=== PATIENT | male | born 1970 | race Caucasian/White ===

== ENCOUNTER 2018-05-14 12:06 | Emergency (ER) | payer SELFPAY ==
[2018-05-14 12:11] VITALS: BP 107/70; PULSE 74; TEMP 98.2; BMI 29.7
[2018-05-14] MEDS ORDERED: IBUPROFEN 600 MG TABLET (FP) PO ONE (12:38)
--- NOTE | 2018-05-14 13:21 | PDOC ---
History of Present Illness - General Chief Complaint: Injury Stated Complaint: FALL/INJURY Time Seen by Provider: 05/14/18 12:27 History Source: Patient Exam Limitations: No Limitations - History of Present Illness Initial Comments: 05/14/18 13:16 47 yo M w/ a h/o prostate CA in remission, comes in c/o R knee pain s/p slip and fall on ice on the street. He says that he hit his R knee against a wall when he fell. Denies head trauma/injury, no LOC, no neck pain, no back pain, no pain anywhere else. A bystander brought him to the ER. He did not take any pain meds prior to arrival. Denies numbness/tingling anywhere, no ankle/hip/back pain. No other complaints today Past History - Past Medical History Allergies/Adverse Reactions: Allergies Allergy/AdvReac Type Severity Reaction Status Date / Time No Known Allergies Allergy Verified 05/14/18 12:48 Home Medications: Ambulatory Orders Ibuprofen 600 mg PO Q6H #20 tablet 05/14/18 Oxycodone HCl/Acetaminophen [Percocet 5-325 mg Tablet] 1 tab PO Q6H PRN #10 tablet MDD 4 05/14/18 Cancer: Yes (PANCREAS) COPD: No - Immunization History Immunization Up to Date: Yes - Suicide/Smoking/Psychosocial Hx Smoking History: Never smoked Hx Alcohol Use: No Drug/Substance Use Hx: No Review of Systems - Review of Systems Able to Perform ROS?: Yes Constitutional: No: Chills, Fever, Malaise, Night Sweats HEENTM: No: Eye Pain, Recent change in vision, Throat Pain Respiratory: No: Cough, Shortness of Breath Cardiac (ROS): No: Chest Pain, Palpitations, Chest Tightness ABD/GI: No: Diarrhea, Nausea, Vomiting, Abdominal cramping : No: Dysuria, Hematuria Musculoskeletal: No: Back Pain Integumentary: No: Rash Neurological: No: Headache, Numbness, Dizziness Psychiatric: No: Change in Appetite Endocrine: No: Unexplained Weight Loss *Physical Exam - Vital Signs Last Vital Signs Temp Pulse Resp BP Pulse Ox 98.2 F 74 16 107/70 99 05/14/18 12:09 05/14/18 12:09 05/14/18 12:09 05/14/18 12:05/14/18 12:09 - Physical Exam General Appearance: Yes: Nourished. No: Apparent Distress HEENT: positive: PRATIBHA, Normal ENT Inspection, Normal Voice. negative: Pale Conjunctivae, Scleral Icterus (R), Scleral Icterus (L) Neck: positive: Supple. negative: Decreased range of motion, Tender midline Respiratory/Chest: positive: Normal Breath Sounds. negative: Respiratory Distress, Accessory Muscle Use Cardiovascular: positive: Regular Rhythm, Regular Rate Musculoskeletal: positive: Normal Inspection, Other (no midline back tenderness , no skin breaks in back). negative: CVA Tenderness, Decreased Range of Motion Extremity: positive: Normal Capillary Refill, Other (R knee with swelling diffusely. (+)tenderness medially around MCL and Medial meniscus. Able to straight leg raise, Able to exxtend and flex at R knee, mild effusion. 5/5 strength, good patellar/DP pulses. Good sensory function. NVI) Integumentary: positive: Normal Color, Dry. negative: Jaundice, Rash Neurologic: positive: Fully Oriented, Alert, Normal Mood/Affect Moderate Sedation - Procedure Monitoring Vital Signs: Procedure Monitoring Vital Signs Temperature 98.2 F 05/14/18 12:09 Pulse Rate 74 05/14/18 12:09 Respiratory Rate 16 05/14/18 12:09 Blood Pressure 107/70 05/14/18 12:09 O2 Sat by Pulse Oximetry (%) 99 05/14/18 12:09 ED Treatment Course - RADIOLOGY Radiology Studies Ordered: Category Date Time Status KNEE 3 POS-RIGHT [RAD] Stat Radiology 05/14/18 12:37 Completed - Medications Given in the ED: ED Medications Discontinued Medications Generic Name Dose Route Start Last Admin Trade Name Xiomara PRN Reason Stop Dose Admin Ibuprofen 600 mg 05/14/18 12:38 05/14/18 12:50 Motrin - PO 05/14/18 12:39 600 mg ONCE ONE Administration Medical Decision Making - Medical Decision Making 05/14/18 13:20 47 yo M w/ knee injury s/p slip and fall. WIll give pain meds, do xrays and reassess 05/14/18 13:21 xray without acute pathology Will place patient in knee immobilizer, give crutches Will refer to orthopedics I explained to pt that he might need an MRI if symptoms persist to R/O soft tissue injury, hence the necessity for ortho follow up Return for worsening/concerning symptoms Pt verbalizes understanding and agrees with plan *DC/Admit/Observation/Transfer Diagnosis at time of Disposition: Right knee injury Qualifiers: Encounter type: initial encounter Qualified Code(s): S89.91XA - Unspecified injury of right lower leg, initial encounter - Discharge Dispostion Disposition: HOME Condition at time of disposition: Stable Decision to Admit order: No - Prescriptions Prescriptions: Ibuprofen 600 mg PO Q6H #20 tablet Oxycodone HCl/Acetaminophen [Percocet 5-325 mg Tablet] 1 tab PO Q6H PRN #10 tablet MDD 4 PRN Reason: Pain - Referrals Referrals: Faisal Albrecht DO [Staff Physician] - - Patient Instructions Printed Discharge Instructions: DI for Knee Pain Additional Instructions: Please follow up with orthopedics as discussed Return for worsening/concerning symptoms, including numbness/tingling, change in sensation/temperature. Rest, Ice, compression and elevation as discussed - Post Discharge Activity
== END 2018-05-14 13:49 | disposition home or self-care (01) ==
LOC: JERFT 12:06
PROC: 2W3QXYZ Immobilization of Right Lower Leg using Other Device (ICD-10-PCS; principal; 2018-05-14)
DX: S89.81XA Other specified injuries of right lower leg, initial encounter (principal); W00.2XXA Other fall from one level to another due to ice and snow, initial encounter; Y93.89 Activity, other specified; Y92.480 Sidewalk as the place of occurrence of the external cause; Y99.8 Other external cause status; Z85.46 Personal history of malignant neoplasm of prostate
CPT/HCPCS: 73562-TC-RT-FY; 99281-25